=== PATIENT | male | born 1945 | race Caucasian/White ===

== ENCOUNTER → 2019-11-01 10:50 | Outpatient (BNVA) | payer MEDICARE, SELFPAY | PROVIDERS: Family Provider Physician Assistant Medical; PCP Physician Assistant Medical; Referring Provider Physician Assistant; Visit Provider Nurse Practitioner Family | DX: R35.0 Frequency of micturition (principal); R39.9 Unspecified symptoms and signs involving the genitourinary system | CPT/HCPCS: 80053; 81001 ==

== ENCOUNTER 2022-04-16 06:00 | Outpatient (RCR) | payer MEDICARE, SELFPAY | END 2022-05-15 23:59 | disposition home or self-care (01) | LOC: WPT 06:00 | PROVIDERS: PCP Physician Assistant Medical; Visit Provider Orthopaedic Surgery | DX: M17.12 Unilateral primary osteoarthritis, left knee (principal) | CPT/HCPCS: 97110; 97162 ==

== ENCOUNTER 2022-06-16 06:00 | Outpatient (RCR) | payer MEDICARE, SELFPAY | END 2022-07-16 23:59 | disposition home or self-care (01) | LOC: WPT 06:00 | PROVIDERS: PCP Physician Assistant Medical; Visit Provider Registered Nurse | DX: Z47.1 Aftercare following joint replacement surgery (principal); Z96.652 Presence of left artificial knee joint | CPT/HCPCS: 97110; 97116; 97161; 97530 ==

== ENCOUNTER 2022-07-17 06:00 | Outpatient (RCR) | payer MEDICARE, SELFPAY | END 2022-08-13 23:59 | disposition home or self-care (01) | LOC: WPT 06:00 | PROVIDERS: PCP Physician Assistant Medical; Visit Provider Registered Nurse | DX: Z47.1 Aftercare following joint replacement surgery (principal); Z96.652 Presence of left artificial knee joint | CPT/HCPCS: 97110; 97112; 97116; 97530 ==

== ENCOUNTER 2023-07-30 18:24 | Emergency (ER) | payer MEDICARE, SELFPAY ==
[2023-07-30 18:34] VITALS: BP 172/86; PULSE 104; RESP 16; TEMP 39; O2SAT 94
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
--- NOTE | 2023-07-30 18:37 | W.ED.FALL ---
HPI - Fall General: Chief Complaint: Fall Stated Complaint: Fall/ Wrist pain Time Seen by Provider: 07/30/23 18:32 History of Present Illness: 77-year-old male presents to the emergency department via EMS personnel. He states he was out in his yard when he had a accidental slip and fall he states he has pain and swelling to his right wrist that he states is a 4 out of 10. He states the pain is worse when he tries to move his wrist. It was splinted at the scene by EMS personnel. He does appear to be slow with his answers to questions. He denies numbness or tingling, he denies neck or back pain. Review of Systems General: Reports: 10 or more systems reviewed and unremarkable except in HPI and below Musc: Reports: extremity pain, extremity swelling and joint pain PFS ED PFSH: Medical History (Updated 07/30/23 @ 20:15 by John Das MD) Osteoporosis Hyperlipidemia Type 2 diabetes mellitus HTN (hypertension) Sinus tachycardia GERD (gastroesophageal reflux disease) Iron deficiency anemia due to chronic blood loss Lower urinary tract symptoms (LUTS) Surgical History Hx of cervical spine surgery Hx of cholecystectomy Hx of tonsillectomy History of back surgery History of knee replacement Family History Family/Other No problems noted. Social History Smoking and tobacco/nicotine status: never used tobacco/nicotine Alcohol intake: never Substance/Drug Use: never Marital status: Current occupational status: retired Physical Exam Narrative: EXAM NARRATIVE: Constitutional: the patient appears well nourished and with normal development. Vital signs reviewed as documented. HENMT: Normocephalic, atraumatic. External ears normal appearance without drainage. Nose without drainage, normal appearance. Mucus membranes moist. Neck is supple, No jugular venous distension, trachea is midline, no appreciable carotid bruits. No lymphadenopathy. No meningeal signs. Flexion, extension and lateral rotation is without pain. Eyes: Pupils are equal, round, reactive to light and accommodation. No scleral icterus. Extra-ocular movement are intact. Thorax is symmetrical and with equal rise and fall with respirations. Resp: Lungs are clear to auscultation. No wheezes, rales, crackles or ronchi at present. Cardio: Regular rate and rhythm. Positive S1, S2. No appreciable murmurs, rubs or gallops. GI: Abdominal exam reveals normal bowel sounds to all quadrants. No organomegaly. No obvious palpable masses noted. No hepatomegally appreciated. Soft, non-tender to palpation. Extremity: Right wrist currently splinted he does have good pulses to the upper extremities and capillary refills less than 3 seconds. The wrist is tender to palpation more to the radial aspect. There does appear to be mild swelling noted. Both femoral and pedal pulses are 2+ and equal bilaterally. Moves all extremities well, sensation in all extremities. Neuro: Alert and oriented x4, person, place, time and situation. Cranial nerves II through XII are grossly intact, there is no focal neurological deficits that I can appreciate at present. Motor strength in the upper and lower extremities are equal and bilateral 5/5. Psych: Cooperative, calm, normal thought process, appropriate judgment. Skin: No lesions, rashes. No gross abnormalities noted. Back: Symmetrical, no obvious deformity, No CVA tenderness Course ED course: I reviewed the radiographic examination and determined the need for fracture stabilization via splint. A right sugar tong splint was utilized. The splint was ordered and placed by the nursing staff, under the direct supervision of myself (ER Physician. The patient's neurovascular status was evaluated and was intact before and after the application of the splint. Capillary refill was less than 3 seconds before and after the application. The patient was splinted and the most appropriate anatomical and functional position at that time. Anticipatory guidance, return precautions and red flag precautions were provided to the patient and support person. The patient/support person was advised to contact the patient's primary care provider or Orthopedic provider to make a follow-up appointment for additional evaluation and treatment within the next 3-5 days. Procedure note: Right shoulder sling I reviewed the radiographic examination and determined the need for stabilization via right upper extremity sling. A soft shoulder sling was utilized. The sling was ordered and placed by the nursing staff, under the direct supervision of myself (ER Physician. The patient's neurovascular status was evaluated and was intact before and after the application of the sling/splint. Capillary refill was less than 3 seconds before and after the application. The patient was provided a sling and the most appropriate anatomical and functional position at that time. Anticipatory guidance, return precautions and red flag precautions were provided to the patient and support person. The patient/support person was advised to contact the patient's primary care provider or Orthopedic provider to make a follow-up appointment for additional evaluation and treatment within the next 3-5 days. Vital Signs: Vital signs: Vital Signs Temperature 102.2 F H 07/30/23 18:34 Pulse Rate 108 H 07/30/23 20:00 Respiratory Rate 16 07/30/23 20:24 Blood Pressure 166/84 07/30/23 20:00 Pulse Oximetry 93 07/30/23 20:00 Oxygen Delivery Me thod Room Air 07/30/23 20:00 MDM - Fall Medical Decision Making Will provide pain medication as needed, obtain a wrist radiograph and reevaluate. I will provide pain medication as well as nausea medicine. I reviewed the radiograph examination we will provide a sugar-tong splint as well as a sling to the right arm. Have provided him the on-call orthopedic physician's contact information and we will provide him with written prescriptions for pain medications at the time of discharge. Medical Records I reviewed the patient's medical records. Lab Data Radiology Impressions Wrist X-Ray 07/30/23 18:36 IMPRESSION: Acute fracture of the distal radius. All radiology interpretation(s) finalized by discharge Discharge Plan Discharge Patient Disposition: Home Clinical Impression: Closed fracture of right wrist Qualifiers: Encounter type: initial encounter Qualified Code(s): S62.101A - Fracture of unspecified carpal bone, right wrist, initial encounter for closed fracture Accidental fall Qualifiers: Encounter type: initial encounter Qualified Code(s): W19.XXXA - Unspecified fall, initial encounter Condition: Stable Prescriptions: New hydrocodone-acetaminophen 5-325 mg tablet 1 tab PO Q8H PRN (Reason: pain) Qty: 14 0RF ondansetron HCl 4 mg tablet 4 mg PO Q12H 5 Days Qty: 10 0RF No Action tramadol 50 mg tablet 50 mg PO DAILY metformin 1,000 mg tablet 1,000 mg PO DAILY lovastatin 20 mg tablet 20 mg PO DAILY pantoprazole 40 mg tablet,delayed release (DR/EC) 40 mg PO DAILY ferrous sulfate 325 mg (65 mg iron) tablet 325 mg PO DAILY calcium carbonate-vitamin D3 [Oyster Shell + D3] 250-125 mg-unit tablet 1 tab PO DAILY lisinopril 2.5 mg tablet 5 mg PO DAILY tamsulosin 0.4 mg capsule 0.4 mg PO .at bedtime Qty: 30 12RF Discharge Orders: Discharge ED (Routine); Ordered 07/30/23 Ordered By: John Das Referrals: Jaxon Kingston [Referring] - Katty Verma MD [Physician] - Discharge Diet: Usual diet Discharge Activity: Resume usual activity Patient Instructions: Opioid Safety, Pain Management Activity Restrictions/Additional Instructions: Activity Restrictions/Additional Instructions: Thank you for choosing [facility] for your healthcare needs today. Please realize that you were seen in the Emergency Department and that we are providing you with an emergency medical screening exam and this may not be a complete and all inclusive of all the testing and or medical work-up that you may need to determine your ailment or severity of your illness. It is very important that you follow-up as instructed with your Primary care provider or Specialist for additional evaluation and to discuss your medical treatment plan. You may return to the Emergency Department should you have concerns or if your condition changes or worsens in any way. Coding Level of Care Code ED Irrigation System Operator for Dane Barrientos
[2023-07-30 19:08] VITALS: BP 164/77; PULSE 106; RESP 14; O2SAT 92
[2023-07-30 20:00] VITALS: BP 166/84; PULSE 108; RESP 16; O2SAT 93
[2023-07-30] MEDS: ondansetron 2 mg/ML SDV 2 mL 4 MG IVP (20:22)
[2023-07-30 20:24] VITALS: RESP 16
[2023-07-30] MEDS: morphine 4 mg/mL SDV 1 mL IM (20:24)
[2023-07-30 21:35] VITALS: BP 139/66; PULSE 86; O2SAT 92
== END 2023-07-30 20:50 | disposition home or self-care (01) ==
PROVIDERS: Emergency Provider Internal Medicine; PCP Family Medicine
DX: S52.501A Unspecified fracture of the lower end of right radius, initial encounter for closed fracture (principal); Z79.84 Long term (current) use of oral hypoglycemic drugs; E78.5 Hyperlipidemia, unspecified; E11.9 Type 2 diabetes mellitus without complications; I10 Essential (primary) hypertension; W01.0XXA Fall on same level from slipping, tripping and stumbling without subsequent striking against object, initial encounter
CPT/HCPCS: 29125; 73110; 96374; 99284; J2270; J2405

== ENCOUNTER → 2023-08-06 10:36 | Outpatient (BNVA) | payer MEDICARE, SELFPAY | PROVIDERS: PCP Family Medicine; Referring Provider Internal Medicine; Visit Provider Specialist | DX: S52.501A Unspecified fracture of the lower end of right radius, initial encounter for closed fracture; S52.601A Unspecified fracture of lower end of right ulna, initial encounter for closed fracture; W19.XXXA Unspecified fall, initial encounter; Z46.89 Encounter for fitting and adjustment of other specified devices; S52.591D Other fractures of lower end of right radius, subsequent encounter for closed fracture with routine healing; X58.XXXD Exposure to other specified factors, subsequent encounter | CPT/HCPCS: 25600; 73110; 97760; 99204; L3982 ==

== ENCOUNTER 2023-08-06 11:38 | Outpatient (CLI) | payer MEDICARE, SELFPAY | END 2023-08-06 11:39 | disposition home or self-care (01) | LOC: SPT 11:39 | PROVIDERS: PCP Family Medicine; Visit Provider Specialist | DX: Z46.89 Encounter for fitting and adjustment of other specified devices (principal); S52.591D Other fractures of lower end of right radius, subsequent encounter for closed fracture with routine healing; X58.XXXD Exposure to other specified factors, subsequent encounter | CPT/HCPCS: 25600; 97760; 99204; L3982 ==

== ENCOUNTER → 2023-08-27 14:53 | Outpatient (BNVA) | payer MEDICARE, SELFPAY | PROVIDERS: PCP Family Medicine; Visit Provider Specialist | DX: S52.501D Unspecified fracture of the lower end of right radius, subsequent encounter for closed fracture with routine healing; S52.601D Unspecified fracture of lower end of right ulna, subsequent encounter for closed fracture with routine healing; X58.XXXD Exposure to other specified factors, subsequent encounter | CPT/HCPCS: 73110; 99024 ==

== ENCOUNTER → 2023-09-10 11:15 | Outpatient (BNVA) | payer MEDICARE, SELFPAY | PROVIDERS: PCP Family Medicine; Visit Provider Specialist | DX: S52.501D Unspecified fracture of the lower end of right radius, subsequent encounter for closed fracture with routine healing; S52.601D Unspecified fracture of lower end of right ulna, subsequent encounter for closed fracture with routine healing; X58.XXXD Exposure to other specified factors, subsequent encounter | CPT/HCPCS: 73110; 99024 ==

== ENCOUNTER → 2023-10-08 09:08 | Outpatient (BNVA) | payer MEDICARE, SELFPAY | PROVIDERS: PCP Family Medicine; Visit Provider Specialist | DX: S52.501D Unspecified fracture of the lower end of right radius, subsequent encounter for closed fracture with routine healing (principal); S52.601D Unspecified fracture of lower end of right ulna, subsequent encounter for closed fracture with routine healing; X58.XXXD Exposure to other specified factors, subsequent encounter | CPT/HCPCS: 73110; 99024 ==

== ENCOUNTER 2025-02-14 05:00 | Outpatient (RCR) | payer MEDICARE, SELFPAY | END 2025-03-15 23:59 | disposition home or self-care (01) | LOC: WPT 05:00 | PROVIDERS: Visit Provider Family Medicine | DX: M25.512 Pain in left shoulder (principal); G89.29 Other chronic pain | CPT/HCPCS: 97110; 97112; 97140; 97161 ==